=== PATIENT | male | born 1995 | race Caucasian/White ===

== ENCOUNTER 2016-08-20 09:25 | Day surgery (SDC) | payer BC ==
[2016-08-18 10:15] VITALS: BMI 35.9
[~2016-08-20] VITALS: Ht 172.7 cm; Wt 99.4 kg
[2016-08-20] VITALS (10 sets, daily range): BP systolic 107–123; BP diastolic 53–81; PULSE 62–89; RESP 13–25; Ht 172.7 cm; Wt 99.4 kg
[~2016-08-20 09:25] MED LIST: CLINDAMYCIN 600 MG/D5W (PMX) 50 ML IVPB SCH; SOD CHLORIDE 0.9% 1,000 ML IV SCH
[2016-08-20] MEDS ORDERED: METOCLOPRAMIDE 10 MG INJ ONE (10:57)
[2016-08-20] MEDS ORDERED: PROPOFOL 20 ML ONE (10:57)
[2016-08-20] MEDS ORDERED: ROCURONIUM 50 MG INJ ONE (10:57)
[2016-08-20] MEDS ORDERED: MIDAZOLAM 1 MG/ML 2 ML INJ ONE (10:57)
[2016-08-20] MEDS ORDERED: BUPIVACAINE 0.25% (MPF) 30 ML INJ ONE (10:59)
[2016-08-20] MEDS ORDERED: LIDOCAINE 2% JELLY 5 ML ONE (10:59)
[2016-08-20] MEDS ORDERED: FENTAnyl 50 MCG/ML VIAL ONE (11:33)
[2016-08-20] MEDS ORDERED: CEFAZOLIN 1 GM INJ ONE (11:40)
[2016-08-20] MEDS ORDERED: NEOSTIGMINE 3 MG/3 ML SYRINGE ONE (11:45)
[2016-08-20] MEDS ORDERED: GLYCOPYRROLATE 0.4 MG INJ ONE (11:45)
[2016-08-20] MEDS ORDERED: MEPERIDINE 25 MG INJ IV PRN (12:00)
[2016-08-20] MEDS ORDERED: LABETALOL HCL 20MG INJ IV PRN (12:00)
[2016-08-20] MEDS ORDERED: METOCLOPRAMIDE 10 MG INJ IV PRN (12:00)
[2016-08-20] MEDS ORDERED: DIPHENHYDRAMINE 50 MG INJ IV PRN (12:00)
[2016-08-20] MEDS ORDERED: OXYCODONE/ACETAMINOPHEN (5/325) TAB PO PRN ×2 (12:00)
[2016-08-20] MEDS ORDERED: HYDROmorphONE (0.2 MG/ML) 10ML SYG IV PRN ×3 (12:00)
[2016-08-20] MEDS ORDERED: ONDANSETRON 4 MG INJ IV PRN (12:00)
[2016-08-20] MEDS ORDERED: hydrALAzine 20 MG INJ IV PRN (12:00)
[2016-08-20] MEDS ORDERED: KETOROLAC 30 MG INJ ONE (12:01)
--- NOTE | 2016-08-20 12:17 | OPR ---
Date/Time of Note Date/Time of Note DATE: 08/20/16 TIME: 12:14 Operative Report Procedure Date: Aug 20, 2016 Preoperative Diagnosis pilonidal cyst Postoperative Diagnosis same Operation Performed pilonidal cystectomy with 8 cm incision and 8 x 3 cm size mass localized adjacent tissue transfer with the use of skin flaps with 24 sq cm defect therapeutic [place] [id number] Surgeon: Nj BALDERAS Specimens pilonidal cyst Procedure Description Patient is taken to the OR and prepped and draped in usual sterile fashion. Surgical timeout was performed IV antibiotics are given. Elliptical incision is made around the pilonidal cyst using a 10 blade. Dissection cautery was carried down all the way to the bone. The pilonidal cyst is resected. Hemostasis established due to large tissue defect localized adjacent tissue transfer with use of skin flaps was performed. Multilayer closure with interrupted 2-0 Vicryl and skin is closed with interrupted 2-0 nylon there. Local anesthesia is injected into all incision sites. Dressings were applied. Nj BALDERAS Aug 20, 2016 12:17
[2016-08-20] MEDS ORDERED: HYDROCODONE/APAP (5/325) TAB PO ONE (12:30)
== END 2016-08-20 13:52 | disposition home or self-care (01) ==
LOC: SDS 09:25
PROVIDERS: ATTEND Surgery
DX: L05.91 Pilonidal cyst without abscess (principal)
CPT/HCPCS: 11772; 88304; J0690; J1170; J1885; J2250; J2710; J2765; J3010; Z7512; Z7610